=== PATIENT | female | born 2000 | race African-American/Black ===

== ENCOUNTER 2020-02-21 11:40 | Emergency (ER) | payer OTHER ==
[~2020-02-21] VITALS: Ht 162.6 cm; Wt 106.6 kg
[2020-02-21 12:48] VITALS: BP 132/77
== END 2020-02-21 12:47 | disposition home or self-care (01) ==
LOC: ER 11:40
DX: J03.80 Acute tonsillitis due to other specified organisms (principal); B95.8 Unspecified staphylococcus as the cause of diseases classified elsewhere